=== PATIENT | female | born 1985 | race Caucasian/White ===

== ENCOUNTER 2024-11-30 12:09 | Emergency (ER) | payer OTHER ==
[~2024-11-30] VITALS: Ht 165.1 cm; Wt 106.6 kg
[2024-11-30 12:17] VITALS: TEMP 98.5
[2024-11-30 14:20] VITALS: PULSE 75; RESP 16; O2SAT 100
== END 2024-11-30 14:44 | disposition home or self-care (01) ==
LOC: ER 12:30
DX: R51.9 Headache, unspecified (principal); S00.03XA Contusion of scalp, initial encounter; R11.0 Nausea; V53.5XXA Driver of pick-up truck or van injured in collision with car, pick-up truck or van in traffic accident, initial encounter; Y92.488 Other paved roadways as the place of occurrence of the external cause; E78.5 Hyperlipidemia, unspecified; R73.03 Prediabetes
CPT/HCPCS: 70450; 72125; 99283